=== PATIENT | male | born 2000 | race Caucasian/White ===

== ENCOUNTER 2021-12-20 21:38 | Emergency (ER) | payer OTHER ==
[~2021-12-20] VITALS: Ht 175.3 cm; Wt 86.4 kg
[2021-12-20 21:59] VITALS: TEMP 100.4
[2021-12-21 00:13] VITALS: BP 114/78; PULSE 76
== END 2021-12-21 00:13 | disposition home or self-care (01) ==
LOC: COL.ER 21:38
DX: U07.1 COVID-19 (principal); Z73.0 Burn-out